=== PATIENT | female | born 1950 | race Caucasian/White ===

== ENCOUNTER → 2018-07-19 | Outpatient (CLI) | payer BC | LOC: RAD 14:39 | DX: M47.27 Other spondylosis with radiculopathy, lumbosacral region (principal); I70.0 Atherosclerosis of aorta ==

== ENCOUNTER → 2018-12-14 | Outpatient (CLI) | payer OTHER | LOC: MRI 09:31 | DX: M47.815 Spondylosis without myelopathy or radiculopathy, thoracolumbar region (principal); M51.87 Other intervertebral disc disorders, lumbosacral region; M51.35 Other intervertebral disc degeneration, thoracolumbar region ==

== ENCOUNTER → 2019-10-10 | Outpatient (CLI) | payer OTHER ==
[~2019-10-10] VITALS: Ht 152.4 cm; Wt 78.9 kg
[~2019-10-10] MED LIST: FISH OIL 1,0001 EAC9 PO; HYDROCODON-ACE1 EAC8 PO; METHOCARBAMOL500 M2 PO; TYLENOL WITH CO1 TA1 PO
[2019-10-10 09:23] VITALS: BP 141/73
--- NOTE | 2019-10-10 09:37 | NUR ---
Pain Clinic Assessment: 1. History of Osteoarthritis: BACK History of Rheumatoid Arthritis: Not Applicable 2. Height: 5 ft. 0 in. 152.4 cm. Weight: 174.0 lb. oz. 78.926 kg. Patient's BMI: 34.0 3. Vital Signs: BP: 141/73 Pulse: 74 Resp: 18 Temp: 02 Sat: 98 ECG Mon: 4. Pain Intensity: 8-9 5. Fall Risk: Dizziness: Y Needs help standing or walking: Y Fallen in the last 3 months: N Fall risk comments: 6. Patient on Blood Thinner: None 7. History of Hypertension: Y 8. Opioid Therapy greater than 6 weeks: Y Opiate Contract Signed: 9. Risk Assessment Tool Provided: 0-LOW RISK 10. Functional Assessment Tool: 65/70 11. Recreational Drug Use: Never Drug Type: Tobacco Use: Current Every Day Smoker Tobacco Type: Cigarettes Amount or Packs/day: 1.5 How Many Years: 50 Alcohol Use: No Frequency: Quant:
--- NOTE | 2019-10-11 13:15 | HPC ---
[facility] [place] [address] PAIN MANAGEMENT CONSULTATION Name: HARDYKELLEY MOROCHO Room #: REG FERNANDO Gianna.#: [id number] Admission: 10/10/19 Attend Phys: Arsh Boinlla DO Discharge: Date of : 54 Report #: [id number] THIS REPORT FOR: cc: Arsh Argueta James A. DO Johnson, James E. DO ~ DATE OF SERVICE: 10/10/2019 REFERRING PHYSICIAN: Arsh Argueta DO CHIEF COMPLAINT: Low back pain and right lower extremity pain with paresthesias. HISTORY OF PRESENT ILLNESS: As you know, the patient is a 69-year-old female with longstanding history of low back pain, right lower extremity pain with paresthesias. The patient states her pain began 10/2018. She denied injury or trauma that may have led to symptom occurrence. She was referred to our clinic by her primary care physician after trialing conservative treatment options for possible lumbar epidural injection. We saw the patient in consultation 10/04/2019, but due to third green party payer restrictions, authorization had to be obtained before the patient could undergo an epidural injection. We have received this authorization and the patient returns today to undergo a lumbar epidural injection. She is placing current pain score anywhere from 8-9/10. She states pain begins in the right low back, radiates down the right leg. It is constant, shooting, stabbing, sharp, numbness and tingling when describing symptoms. She returns today for the first in a series of lumbar epidural injections under fluoroscopic guidance. ALLERGIES: No known drug allergies. CURRENT MEDICATIONS: Hydrocodone, methocarbamol, omega-3 fish oil, codeine with acetaminophen. SOCIAL HISTORY: The patient smokes half-pack of tobacco per day and has done so for greater than 50 years. Denies IV or illicit drug use. Denies any chronic alcohol use. 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 She is accompanied by her daughter who is doing the translation for us today. IMAGING: No new imaging available. PQRS: The patient has known arthritic changes of the lumbar spine. No diagnosis of rheumatoid arthritis. She is placing pain intensity at 8-9/10. She is a fall risk, but has not had a fall in last 3 months. She is not on blood thinners, but is treated for hypertension. She is on chronic opioids and has a low opiate addiction potential. Pain impact is 65/70, severe interference [facility] [address] [place] [address] PAIN MANAGEMENT CONSULTATION Name: KELLEY HARDY Room #: REG [facility]#: [id number] Admission: 10/10/19 Attend Phys: Arsh Bonilla DO Discharge: Date of : 54 Report #: [id number] near complete interference of daily activities secondary to pain. PHYSICAL EXAMINATION: VITAL SIGNS: Blood pressure 141/73, pulse 74, respiratory rate 18 and unlabored. The patient is 98% on room air. Height 5 feet tall, weight 174 pounds, BMI calculated 34.0. GENERAL: Well-developed, well-nourished, well-hydrated 69-year-old female appearing stated age. Pain is rated today at 8-9/10. HEENT: Normocephalic, atraumatic. Pupils equal, round and reactive. EXTREMITIES: Show no clubbing, no cyanosis, no edema. MUSCULOSKELETAL: Lower extremity strength remains symmetrical, 5/5. Muscle bulk and tone is equal and symmetrical in comparing left lower extremity to right. Seated straight leg raising negative. Supine straight leg raising positive on the right. Gait is antalgic favoring right lower extremity over left. ASSESSMENT: 1. Symptomatic lumbar radiculopathy. 2. Facet arthropathy of the lumbar spine. 3. Degeneration of lumbar spine. 4. Chronic intractable pain. PLAN: 1. The patient returns today in followup visit having received authorization to undergo the first in the series of lumbar epidural injections under fluoroscopic guidance. We have advised the patient of the risks and the benefits of this procedure. These risks include but are not necessarily limited to bleeding, bruising, infection, worsening pain, no relief of pain, also risk of temporary or permanent muscle weakness, temporary or permanent nerve damage, possible paralysis and . The patient states understood and wished to proceed. 2. No medication changes made at today's visit. The patient will continue current medical therapy as prior prescribed. 3. We will see the patient back in followup visit on an as needed basis for possible next in the series of epidural injections. We did place the patient a tentative appointment in 1 month for possible next in the series of epidural injections if necessary. PROCEDURE NOTE DESCRIPTION OF PROCEDURE: L5-S1 right paramedian epidural steroid injection under fluoroscopic guidance. This is the first procedure of the first series that the patient is undergoing. After obtaining written consent, the patient was taken back to the fluoroscopy suite, placed in a prone position with pillow under the abdomen to decrease [address] [address] PAIN MANAGEMENT CONSULTATION Name: KELLEY HARDY Room #: REG FERNANDO [place]#: [id number] Admission: 10/10/19 Attend Phys: Arsh Bonilla DO Discharge: Date of : 54 Report #: [id number] lumbar lordosis. The skin overlying the lumbosacral area was then prepped and draped in aseptic fashion. The L5-S1 vertebral interspace was then identified by AP fluoroscopy. The skin and subcutaneous tissue overlying the target site of injection was anesthetized with 3 mL 1% lidocaine. A 20-gauge 3.5-inch Tuohy needle was then advanced under fluoroscopic guidance towards the epidural space using a right paramedian approach. The epidural space was identified using loss of resistance to air technique. After negative aspiration for heme or cerebrospinal fluid, a total of 1 mL of Omnipaque was injected. A lumbar epidurogram was confirmed using both AP and lateral fluoroscopy. After negative aspiration for heme or cerebrospinal fluid, 5 mL of a solution containing 2 mL 40 mg/mL, 80 mg total triamcinolone along with 3 mL of lidocaine 1% was injected in increments. Contrast spread was noted posterior epidural space. The needle was then retracted approximately half way and needle tract flushed with 1 mL of 1% lidocaine. Needle was then removed. There were no apparent sensory or motor deficits in the lower extremity following the procedure. A sterile bandage was placed over the injection site. The heart rate, pulse, oximetry and blood pressure were continuously monitored after the procedure. There were no apparent complications. The patient tolerated the procedure well and was carefully escorted to the recovery room in stable condition. There were no apparent complications. After meeting discharge criteria, the patient was then discharged home. <ELECTRONICALLY SIGNED> By: Arsh Bonilla DO 10/11/19 [id number] Arsh Bonilla DO /sánchez
== END | disposition home or self-care (01) ==
LOC: PAIN 06:49
PROVIDERS: ATTEND Anesthesiology Pain Medicine
DX: M51.16 Intervertebral disc disorders with radiculopathy, lumbar region (principal); M47.26 Other spondylosis with radiculopathy, lumbar region; G89.29 Other chronic pain; I10 Essential (primary) hypertension; F17.210 Nicotine dependence, cigarettes, uncomplicated; Z98.890 Other specified postprocedural states; Z79.899 Other long term (current) drug therapy; Z79.891 Long term (current) use of opiate analgesic

== ENCOUNTER → 2020-01-31 | Outpatient (CLI) | payer OTHER ==
[~2020-01-31] MED LIST changes: +MELOXICAM15 MG PO; +ZESTRIL10 MG PO
== END ==
LOC: LAB 09:45
PROVIDERS: ATTEND Orthopaedic Surgery
DX: Z01.812 Encounter for preprocedural laboratory examination (principal); Z20.828 Contact with and (suspected) exposure to other viral communicable diseases

== ENCOUNTER 2020-02-05 06:02 | Inpatient (IN) | payer OTHER ==
[2020-01-31 09:44] LABS: URINE BILIRUBIN NEGATIVE (Negative); URINE BLOOD TRACE (Negative); URINE CLARITY CLEAR; URINE COLOR YELLOW; URINE GLUCOSE-RANDOM* NEGATIVE (Negative); URINE KETONES NEGATIVE (Negative); URINE LEUKOCYTES-REFLEX NEGATIVE (Negative); URINE NITRITE-REFLEX NEGATIVE (Negative); URINE PROTEIN (DIPSTICK) NEGATIVE (Negative); URINE SPECIFIC GRAVITY <= 1.005 (1.005-1.035); URINE UROBILINOGEN 0.2 E.U./dl (0.2-1.0)
[~2020-02-05] VITALS: Ht 152.4 cm; Wt 78.9 kg
--- NOTE | ~2020-02-05 | D ---
[facility] [place] [address] DISCHARGE SUMMARY Name: KELLEY HARDY Room #: 448-P ADM IN M.R.#: [id number] Admission: 02/05/20 Attend Phys: Norris Carbajal MD Discharge: Date of : 54 Report #: [id number] THIS REPORT FOR: cc: Arsh Argueta James A. DO Clymer, David J. MD ~ THIS REPORT FOR: //name// CC: Norris Argueta DATE OF SERVICE: 02/07/2020 FINAL DIAGNOSIS: End-stage degenerative arthritis, right hip. OPERATIVE PROCEDURE: Right total hip arthroplasty. HISTORY OF PRESENT ILLNESS: This generally active 69-year-old female has rather severe right hip pain. Clinical and radiographic findings confirmed severe degenerative arthritis. She has tried conservative measures, but is unsuccessful and losing her ability to remain active and independent. The patient and daughter understand treatment options well and wished to go ahead with right total hip replacement. HOSPITAL COURSE: The patient was admitted and taken to the operating room on 02/05/2020 She underwent right total hip replacement, which she tolerated quite nicely. Postoperatively, her course was largely unremarkable. She was able to advance to a regular diet. She moved from IV analgesics to oral analgesics. She was placed on an anticoagulation regimen. She started with physical therapy and made excellent progress in the first day. The Hemovac was removed with limited Hemovac drainage. Her hemoglobin remains reasonably stable at about 9.7. The patient and family note that she has assistance at home and they feel she is ready for discharge with their assistance and some visiting physical therapy. DISCHARGE MEDICATIONS: Include Xarelto 10 mg daily, hydrocodone 5 or 10 mg every 4-6 hours as needed for pain, methocarbamol 500 mg 3 times daily as needed for muscle spasm, lisinopril 10 mg daily. She will continue a regular diet and continue careful activity using a walker for balance and safety. She will have some visiting home health physical therapy and occupational therapy as needed. She and family know they should [address] [address] DISCHARGE SUMMARY Name: KELLEY HARDY Room #: 448-P [facility] IN M.R.#: [id number] Admission: 02/05/20 Attend Phys: Norris Carbajal MD Discharge: Date of : 54 Report #: [id number] give me a call for any problems or questions or we will visit next week in my office for routine followup. By: [id number] Norris Carbajal MD /nt
[2020-02-05 07:11] VITALS: BP 142/77
[2020-02-05 11:30] VITALS: BP 117/72
[2020-02-05 12:30] VITALS: BP 116/78
[2020-02-05 14:00] VITALS: BP 111/65
[2020-02-05 20:05] VITALS: BP 124/62
--- NOTE | 2020-02-05 20:26 | NUR ---
PT RECEIVED AT 1100 FROM REC RM ALERT AND IN NO ACUTE DISTRESS. ASSESSMENT COMPLETED. RT HIP DSNG D&I. ICE PACK IN PLACE. TEDS/SCD'S IN PLACE. HAD SOME MILD NAUSEA BUT GONE NOW AND ABLE TO EAT. WORKED W/ THERAPY AND DOING WELL. VOIDED TWICE. DAUGHTER AT BEDSIDE SINCE SURGERY. PLAN FOR DC TOMORROW.
--- NOTE | 2020-02-06 03:17 | NUR ---
ASSESSMENT COMPLETED. PT ALERT AND ORIENTED X 4.R HIP WITH DRSG INTACT. SCDS IN PLACE. NEURO VASCULAR CHECK INTACT. AFEBRILE. WALKS TO THE BATHROOM WITH SBA, VOIDING OKAY. HYDROCODONE HANDLING THE PAIN WELL THE ICE GIO.CALL APPROPRIATELY. NO FURTHER CONCERNS.
[2020-02-06 05:45] VITALS: BP 107/49
[2020-02-06 06:05] LABS: ABSOLUTE NEUTROPHILS 8.6 thou/uL (1.4-8.2); BASOPHILS 0.2 % (0.0-2.0); EOSINOPHILS 0.2 % (0.0-3.0); HEMATOCRIT 28.2 % (37.0-47.0); HEMOGLOBIN 9.4 gm/dL (12.0-15.0); LYMPHOCYTES 15.8 % (24.0-44.0); MCH 30.2 pg (26.0-34.0); MCHC 33.5 g/dL (28.0-37.0); MCV 90.1 fL (80.0-100.0); PLATELET COUNT 177 thou/uL (150-400); POLYS 74.8 % (36.0-66.0); RBC 3.12 mil/uL (4.20-5.00); RDW 13.6 % (10.5-14.5); WBC 11.4 thou/uL (4.0-11.0)
[2020-02-06 06:15] LABS: CREATININE 0.6 mg/dL (0.6-1.0); MAGNESIUM 1.8 mg/dL (1.8-2.4); POTASSIUM 3.9 mmol/L (3.5-5.1)
--- NOTE | 2020-02-06 08:04 | O ---
[facility] [place] [address] OPERATIVE REPORT Name: KELLEY HARDY Room #: 448-P ADM IN M.R.#: [id number] Admission: 02/05/20 Attend Phys: Norris Carbajal MD Discharge: Date of : 54 Report #: [id number] THIS REPORT FOR: cc: Arsh Argueta James A. DO Clymer, David J. MD ~ CC: Norris Argueta DATE OF SERVICE: 02/05/2020 PREOPERATIVE DIAGNOSIS: End-stage degenerative arthritis, right hip. POSTOPERATIVE DIAGNOSIS: End-stage degenerative arthritis, right hip. PROCEDURE: Right total hip arthroplasty. SURGEON: Norris Carbajal M.D. INDICATIONS: This 69-year-old female complains of progressive right hip pain with limited range of motion. Clinical exam and x-rays confirm severe end-stage degenerative arthritis. We have discussed treatment options and elected to proceed with right total hip replacement. DESCRIPTION OF PROCEDURE: The patient was taken to the operating room where she was placed under general anesthesia. Prophylactic intravenous antibiotics were administered. She was turned to the left lateral decubitus position and the right hip, thigh and leg were meticulously prepped and draped. A slightly curving posterolateral skin incision was made centered over the greater trochanter. This was carried through adipose tissue, fascia and exposing the posterior aspect of the hip joint. The short external rotators and capsule were taken down and preserved and tagged with several #1 Tevdek sutures. The hip was dislocated posteriorly. Moderately severe degenerative change on both the femoral head and acetabulum was noted. A femoral neck osteotomy was performed. The canal was prepared with reamers and hand broaches. The Koenig and Nephew hip system was utilized and a size 13 press-fit stem seemed to fit nicely. The trial stem was removed and attention directed to the acetabulum. Good exposure was established and the acetabulum was sequentially reamed, gradually advancing to a 52 mm reamer. A Koenig and Nephew size 52 3-hole hemispherical StikTite shell was then inserted. This was placed in alignment with her true acetabulum, placing this in about 45 degrees off of vertical and 20 degrees of anteversion. It was impacted into position and seated nicely and appeared to be secure. In addition, 2 cancellous screws were placed through the apical holes engaging good periacetabular bone with additional purchase. A 36-mm polyethylene liner was then inserted, positioning this with the 20-degree elevated rim at about the 9 o'clock posterior position. The liner seated nicely and appeared to be secure. [address] [address] OPERATIVE REPORT Name: KELLEY HARDY Room #: 448-P [facility] IN M.R.#: [id number] Admission: 02/05/20 Attend Phys: Norris Carbajal MD Discharge: Date of : 54 Report #: [id number] The Koenig and Nephew size 13 Synergy porous femoral component was then inserted, positioning this in about 20 degrees of anteversion. It seated nicely and appeared to be secure. A trial reduction was performed and the hip was best suited for a +0 neck length. A permanent cobalt chrome 36 mm x +0 neck length head was then selected. This was impacted onto the Kemp taper. The hip was reduced. Alignment, range of motion, stability and leg lengths were assessed and felt to be satisfactory. The short external rotators and capsule were repaired back to bone. A single Hemovac was left in the wound exiting through a separate stab incision. The fascia was closed with multiple #1 Vicryl sutures. The adipose and subcutaneous tissues were closed with 0 Monocryl. The skin was closed with skin angelita. A sterile dressing was applied. The patient was awakened and returned to recovery room in good condition. <ELECTRONICALLY SIGNED> By: Norris Carbajal MD 02/06/20 [id number] Norris Carbajal MD /nt
--- NOTE | 2020-02-06 14:36 | NUR ---
assessment: CM REVIEWED CHART AND MET WITH PATIENT AT THE BEDSIDE. PTS DAUGHTER IT ALSO AT THE BEDSIDE. PTS PRIMARY LANGUAGE IS YI BUT DAUGHTER IS ABLE TO TRANSLATE. PT LIVES AT HOME WITH HER AND SON IN A HOUSE. PT HAS ABOUT 5-7 STEPS WITH HANDRAILS TO ENTER AND NO STEPS ONCE INSIDE. PT REPORTS THAT SHE HAS A WALKER AT HOME FOR AMBULATION. PT HAS NOT HAD HH IN THE PAST. PHYSICAL THERAPY IS WORKING WITH PATIENT AND RECOMMENDING HOME HEALTH CARE. PT HAS NO PREFERENCE OF HH AGENCY. CM FAXED REFERRAL TO [facility]. PLANS ARE FOR PT TO POSSIBLY DISCHARGE HOME TOMORROW WITH HH. CM WILL CONTINUE TO FOLLOW.
--- NOTE | 2020-02-06 18:33 | NUR ---
PT CARE ASSUMED AT 0700.A&Ox4. PT UP WITH PT TODAY AND DOING WELL. IV PATENT WITH NO REDNESS OR EDEMA. HEMOVAC REMOVED TODAY. PAIN MANAGED WELL WOTH PAIN MEDICATION ON BOARD. FALL PROTOCOL IN PLACE. DAUGHTER IN THE ROOM MOST OF THE DAY. PT UP TO THE BATHROOM WITH WALKER AND STANDBY. FALL PROTOCOL IN PLACE. CALL LIGHT IN REACH. ZEUS DRESSING DRY AND INTACT. SCD/KAIDEN HOSE IN PLACE. WILL CONTINUE TO MONITOR.
[2020-02-06 19:24] VITALS: BP 118/59
[2020-02-07 04:26] VITALS: BP 140/58
--- NOTE | 2020-02-07 04:49 | NUR ---
ASSESSED AT START OF SHIFT. PT A&OX4 C/O PAIN MANAGED WITH PO HYDROCODONE. PT UP WITH ASSISTX1 TO THE TOILET AMBULATING WELL. ZEUS DRESSING INTACT AND ICE PACK PLACED FOR COMFORT. FALL PREC IN PLACE AND CALL LIGHT IN REACH WILL CONT WITH POC TILL EOS.
[2020-02-07 06:29] LABS: HEMATOCRIT 28.5 % (37.0-47.0); HEMOGLOBIN 9.7 gm/dL (12.0-15.0); MCH 30.5 pg (26.0-34.0); MCHC 34.1 g/dL (28.0-37.0); MCV 89.6 fL (80.0-100.0); RBC 3.18 mil/uL (4.20-5.00); RDW 13.7 % (10.5-14.5); WBC 9.6 thou/uL (4.0-11.0)
[2020-02-07] MEDS ORDERED: XARELTO10 MG PO (07:27)
[2020-02-07] MEDS ORDERED: NORCO 10-325 T1 EACH PO (07:29)
[2020-02-07 07:55] VITALS: BP 140/58
[2020-02-07 10:43] VITALS: BP 140/58
--- NOTE | 2020-02-07 10:44 | NUR ---
ON-GOING ASSESSMENT: CM REVIEWED CHART AND SPOKE WITH [facility] WHO REPORTS THEY ARE NOT IN NETWORK WITH [facility]. CM FAXED REFERRAL TO [facility] WHO REPORTS THEY ARE IN NETWORK AND CAN ACCEPT PATIENT. CM FAXED D/C ORDERS TO [facility] AND NOTIFIED THEM PATIENT IS WELSH SPEAKING. CASE CLOSED.
--- NOTE | 2020-02-07 11:04 | NUR ---
PT CARE ASSUMED AT 0700. A&Ox4. PAIN MANAGED WELL WITH PAIN MEDICATION ON BOARD. DISCHARGE INSTRUCTIONS GIVEN. DAUGHTER TRANSLATED DETAILS THAT PT DID NOT UNDERSTAND. NO FURTHER QUESTIONS.
== END 2020-02-07 11:37 | disposition home health service (06) | DRG 470 ==
LOC: TBA 06:02 → OR 06:02 → PRE 08:32 → 4S 10:58 → OR 10:59 → PRE 12:26 → EDSTATUS 14:35 → OR 14:57 → 4S 02-07 11:37
PROVIDERS: Nurse Practitioner; ADMIT Orthopaedic Surgery; ATTEND Orthopaedic Surgery
PROC: 0SR90JZ Replacement of Right Hip Joint with Synthetic Substitute, Open Approach (ICD-10-PCS; principal; 2020-02-05)
DX: M16.11 Unilateral primary osteoarthritis, right hip (principal); I10 Essential (primary) hypertension; F17.210 Nicotine dependence, cigarettes, uncomplicated; Z90.710 Acquired absence of both cervix and uterus
CPT/HCPCS: 10195; 50010; 50101; 50382; 50414; 51412; 53000; 53367; 56521; 56525; 56530; 57095; 62110; 62900; 70005